=== PATIENT | male | born 1980 | race Caucasian/White ===

== ENCOUNTER 2023-12-23 11:39 | Emergency (ER) | payer MEDICARE, MEDICAID ==
[~2023-12-23] VITALS: Ht 162.6 cm; Wt 134.1 kg
[2023-12-23] MEDS ORDERED: ALBUTEROL SULF 2.5 MG/0.5ML(0.5%) NEB SOLN NEB ONE (12:45)
[2023-12-23] MEDS ORDERED: methylPREDNISolone SOD SUCC 125 MG/2 ML VL IM ONE (12:45)
[2023-12-23] MEDS ORDERED: IPRATROPIUM BROM 0.5 MG/2.5ML INH SOL NEB ONE (12:45)
[2023-12-23 13:04] VITALS: BP 135/82; PULSE 92; RESP 16; TEMP 97.6; O2SAT 92
[2023-12-23] MEDS ORDERED: PROM1SOL4 PO (13:33)
[2023-12-23] MEDS ORDERED: CIPR-173 PO (13:33)
[2023-12-23] MEDS ORDERED: PRED20TA2 PO (13:33)
== END 2023-12-23 13:41 | disposition home or self-care (01) ==
LOC: ER 11:39
DX: J44.9 Chronic obstructive pulmonary disease, unspecified (principal); E66.01 Morbid (severe) obesity due to excess calories; R07.89 Other chest pain; Z68.43 Body mass index [BMI] 50.0-59.9, adult
CPT/HCPCS: 71046; 94640; 96372; 99283; J2930; J7644